=== PATIENT | male | born 1955 | race Caucasian/White ===

== ENCOUNTER 2020-02-23 18:05 | Emergency (ER) | payer BC, MEDICARE ==
[2020-02-23 19:14] VITALS: BP 167/90; PULSE 86
[2020-02-23 20:13] LABS: ANION GAP 16.3 mEq/L (7-13); CHLORIDE,CL 105 mmol/L (98-107); SODIUM,NA 143 mmol/L (136-145)
--- NOTE | 2020-02-23 20:19 | EDM.PDOC ---
ED HPI GENERAL MEDICAL PROBLEM - General Chief Complaint: Lower Extremity Injury/Pain Stated Complaint: RIGHT LEG BROKEN PER PT Time Seen by Provider: 02/23/20 19:15 Source of Information: Reports: Patient, RN, RN Notes Reviewed History Limitations: Reports: No Limitations - History of Present Illness INITIAL COMMENTS - FREE TEXT/NARRATIVE: Patient is a 64-year-old male who presents to the ER with complaint of right calf pain. Patient states approximately noon today he was standing on a trailer working on a 4 ow[employer] when he fell over backwards off the trailer. Patient sta valentín the right leg/calf got tangled in the side railing of the trailer. Patient states he has been up and around ambulating on it. Rates the pain a 10/10. He states the pain does improve somewhat when he lays down and elevates the leg. Patient states he is on Xarelto for atrial fibrillation. Patient states he did hit his head quite hard, denies being knocked out. Patient denies any numbness or tingling. Complains of 10 on 10 pain with active and passive range of motion. Right calf is much more swollen than the left calf. 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 Right Lower Leg Pain Score (Numeric/FACES): 10 - Related Data Allergies Allergy/AdvReac Type Severity Reaction Status Date / Time No Known Allergies Allergy Verified 02/23/20 19:14 Home Meds: Home Meds Chlorthalidone 25 mg PO DAILY 12/13/14 [History] Lisinopril 10 mg PO DAILY 12/13/14 [History] Multivitamin [Multi-Vitamin Daily] 1 tab PO DAILY 12/13/14 [History] Sildenafil [Viagra] 100 mg PO DAILY PRN 12/13/14 [History] atenoloL [Atenolol] 1.5 tab PO DAILY 12/13/14 [History] atorvaSTATin [Lipitor] 10 mg PO DAILY 12/13/14 [History] Rivaroxaban [Xarelto] 1 tab PO DAILY 08/13/15 [History] Past Medical History Other HEENT History: TINNITUS Cardiovascular History: Reports: Afib Respiratory History: Reports: None Other Gastrointestinal History: HX OF TUBULAR ADENOMA; LACTOSE INTOLERANCE Other Genitourinary History: NEPHROLITHIASIS Other Musculoskeletal History: DJD, rotator cuff trouble Neurological History: Reports: None Psychiatric History: Reports: None Endocrine/Metabolic History: Reports: Diabetes, Type II Hematologic History: Reports: None Immunologic History: Reports: None Oncologic (Cancer) History: Reports: None Other Dermatologic History: HERPES ZOSTER; POST PERIANAL WART EXCISION - Past Surgical History Other Cardiovascular Surgeries/Procedures: ECHO; CARDIAC CATHETERIZATION GI Surgical History: Reports: Cholecystectomy Social & Family History - Tobacco Use Tobacco Use Status *Q: Current Every Day Tobacco User Years of Tobacco use: 19 Packs/Tins Daily: 0.5 - Caffeine Use Caffeine Use: Reports: None - Recreational Drug Use Recreational Drug Use: No Review of Systems - Review of Systems Review Of Systems: Comprehensive ROS is negative, except as noted in HPI. ED EXAM, GENERAL - Physical Exam Exam: See Below Exam Limited By: No Limitations General Appearance: Alert, WD/WN, Mild Distress Eye Exam: Bilateral Eye: EOMI, Normal Inspection, PERRL (3 brisk) Ears: Normal External Exam, Hearing Grossly Normal Nose: Normal Inspection Throat/Mouth: Normal Inspection, Normal Voice, No Airway Compromise Head: Atraumatic, Normocephalic Neck: Normal Inspection, Supple, Non-Tender, Full Range of Motion Respiratory/Chest: No Respiratory Distress, No Accessory Muscle Use, Chest Non- Tender, Crackles (bases bilaterally) Cardiovascular: Normal Peripheral Pulses, Regular Rate, Rhythm, No Edema, No Gallop, No JVD, No Murmur, No Rub Peripheral Pulses: 2+: Radial (L), Radial (R), Dorsalis Pedis (L), Dorsalis Pedis (R) GI/Abdominal: Normal Bowel Sounds, Soft, Non-Tender (Male) Exam: Deferred Rectal (Males) Exam: Deferred Back Exam: Normal Inspection, Full Range of Motion, NT Extremities: No Pedal Edema, Leg Pain (right calf), Pallor, Other (right calf measures 41cm, left calf 36cm, very firm and tender) Neurological: Alert, Oriented, CN II-XII Intact, Normal Cognition, Normal Gait, Normal Reflexes, No Motor/Sensory Deficits Psychiatric: Normal Affect, Normal Mood Skin Exam: Cool (right lower leg) Lymphatic: No Adenopathy Course - Vital Signs Last Recorded V/S: Last Vital Signs Temp 98.6 F 02/23/20 19:06 Pulse 86 02/23/20 19:06 Resp 19 02/23/20 19:06 BP 167/90 H 02/23/20 19:06 Pulse Ox 98 02/23/20 19:06 - Orders/Labs/Meds Orders: Active Orders 24 hr Category Date Time Status UA W/MANOJ RFLX IF INDICATED [URIN] Stat Lab 02/23/20 19:32 Ordered Labs: Laboratory Tests 02/23/20 02/23/20 02/23/20 Range/Units 19:46 19:46 19:46 WBC 9.6 (5.0-10.0) 10^3/uL RBC 4.31 L (4.6-6.2) 10^6/uL Hgb 13.4 L (14.0-18.0) g/dL Hct 40.0 (40.0-54.0) % MCV 92.8 D (80-100) fL MCH 31.1 (27.0-34.0) pg MCHC 33.5 (33.0-35.0) g/dL Plt Count 180 (150-450) 10^3/uL Neut % (Auto) 56.6 (42.2-75.2) % Lymph % (Auto) 29.9 (20.5-50.1) % [place] % (Auto) 10.7 H (2-8) % Eos % (Auto) 2.7 (1.0-3.0) % Baso % (Auto) 0.1 (0.0-1.0) % PT 12.3 H (9.0-12.0) SEC INR 1.3 H (0.9-1.2) Sodium 143 (136-145) mmol/L Potassium 4.3 (3.5-5.1) mmol/L Chloride 105 (98-107) mmol/L Carbon Dioxide 26 (21-32) mmol/L Anion Gap 16.3 H (7-13) mEq/L BUN 22 H (7-18) mg/dL Creatinine 1.16 (0.70-1.30) mg/dL Est Cr Clr Drug Dosing 55.96 mL/min Estimated GFR (MDRD) > 60 BUN/Creatinine Ratio 19.0 (No establ ref range) Glucose 91 (74-99) mg/dL Lactic Acid (0.4-2.0) mmol/L Calcium 8.9 (8.5-10.1) mg/dL Total Bilirubin 0.3 (0.2-1.0) mg/dL AST 22 (15-37) U/L ALT 30 (16-63) U/L Alkaline Phosphatase 74 (46-116) U/L Creatine Kinase (39-308) U/L Creatine Kinase Index (0-2.4) % CK-MB (CK-2) (0.0-3.6) ng/mL Total Protein 7.0 (6.4-8.2) g/dL Albumin 4.0 (3.4-5.0) g/dL Globulin 3.0 Albumin/Globulin Ratio 1.3 02/23/20 02/23/20 Range/Units 19:46 20:39 WBC (5.0-10.0) 10^3/uL RBC (4.6-6.2) 10^6/uL Hgb (14.0-18.0) g/dL Hct (40.0-54.0) % MCV (80-100) fL MCH (27.0-34.0) pg MCHC (33.0-35.0) g/dL Plt Count (150-450) 10^3/uL Neut % (Auto) (42.2-75.2) % Lymph % (Auto) (20.5-50.1) % [place] % (Auto) (2-8) % Eos % (Auto) (1.0-3.0) % Baso % (Auto) (0.0-1.0) % PT (9.0-12.0) SEC INR (0.9-1.2) Sodium (136-145) mmol/L Potassium (3.5-5.1) mmol/L Chloride (98-107) mmol/L Carbon Dioxide (21-32) mmol/L Anion Gap (7-13) mEq/L BUN (7-18) mg/dL Creatinine (0.70-1.30) mg/dL Est Cr Clr Drug Dosing mL/min Estimated GFR (MDRD) BUN/Creatinine Ratio (No establ ref range) Glucose (74-99) mg/dL Lactic Acid 0.6 (0.4-2.0) mmol/L Calcium (8.5-10.1) mg/dL Total Bilirubin (0.2-1.0) mg/dL AST (15-37) U/L ALT (16-63) U/L Alkaline Phosphatase (46-116) U/L Creatine Kinase 235 (39-308) U/L Creatine Kinase Index 1.7 (0-2.4) % CK-MB (CK-2) 3.9 H (0.0-3.6) ng/mL Total Protein (6.4-8.2) g/dL Albumin (3.4-5.0) g/dL Globulin Albumin/Globulin Ratio - Radiology Interpretation Free Text/Narrative:: Tib/fib xray: PROCEDURE INFORMATION: Exam: XR Right Tibia and Fibula Exam date and time: 02/23/2020 8:00 PM Age: 64 years old Clinical indication: Other: Fall--mid calf pain; Additional info: Injury lower leg, hit head TECHNIQUE: Imaging protocol: XR Right tibia and fibula. Views: 2 views. COMPARISON: No relevant prior studies available. FINDINGS: Bones/joints: Small well corticated density at the tip of the lateral malleolus does not appear to reflect an acute abnormality. The distal medial malleolus is intact. There is no evidence of acute fracture. There is no subluxation or dislocation. Soft tissues: There is no soft tissue abnormality seen. IMPRESSION: No acute findings. Thank you for allowing us to participate in the care of your patient. Dictated and Authenticated by: Deejay Perez MD 02/23/2020 8:45 PM Central Time ([place] & [place]) Head CT wo contrast: PROCEDURE INFORMATION: Exam: CT Head Without Contrast Exam date and time: 02/23/2020 7:59 PM Age: 64 years old Clinical indication: Fall; Additional info: Injury lower leg, hit head TECHNIQUE: Imaging protocol: Computed tomography of the head without contrast. Radiation optimization: All CT scans at this facility use at least one of these dose optimization techniques: automated exposure control; mA and/or kV adjustment per patient size (includes targeted exams where dose is matched to clinical indication); or iterative reconstruction. COMPARISON: CT Head wo Cont 02/07/2017 10:36 AM FINDINGS: Brain: Age-related involutional changes and chronic microvascular ischemic disease. No evidence for acute transcortical infarct. No mass effect or midline shift. No extra-axial collection. No acute intracranial hemorrhage. Basal cisterns are patent. Cerebral ventricles: No ventriculomegaly. Bones/joints: Unremarkable. No acute fracture. Paranasal sinuses: Visualized sinuses are unremarkable. No fluid levels. Mastoid air cells: Visualized mastoid air cells are well aerated. Soft tissues: Unremarkable. IMPRESSION: No evidence for acute transcortical infarct, acute intracranial hemorrhage, or mass effect. Thank you for allowing us to participate in the care of your patient. Dictated and Authenticated by: Hardik Forde MD 02/23/2020 8:44 PM Central Time ([place] & [place]) See rad report - Re-Assessments/Exams Free Text/Narrative Re-Assessment/Exam: 02/23/20 21:54 Discussed patient case with Dr. Barry who states the patient can be sent to ER at [facility] for second opinion evaluation for compartment syndrome. Discussed patient case with Dr. Landry in the ER at [facility] who agreed to accept the patient for POV transfer to [facility]. Patient will drive private vehicle to [facility] in [place]. Departure - Departure Time of Disposition: 21:50 Disposition: DC/Tfer to Acute Hospital 02 Condition: Fair Clinical Impression: Right calf pain, Anticoagulant long-term use Fall Qualifiers: Encounter type: initial encounter Qualified Code(s): W19.XXXA - Unspecified fall, initial encounter - Discharge Information *PRESCRIPTION DRUG MONITORING PROGRAM REVIEWED*: No *COPY OF PRESCRIPTION DRUG MONITORING REPORT IN PATIENT ALBERTO: No Forms: ED Department Discharge, Interfacility Transfer [facility] Sepsis Event Note (ED) - Evaluation Sepsis Screening Result: No Definite Risk - Focused Exam Vital Signs: Vital Signs Temp Pulse Resp BP Pulse Ox 02/23/20 19:06 98.6 F 86 19 167/90 H 98 - My Orders Last 24 Hours: My Active Orders 02/23/20 19:32 UA W/MANOJ RFLX IF INDICATED [URIN] Stat - Assessment/Plan Last 24 Hours: My Active Orders 02/23/20 19:32 UA W/MANOJ RFLX IF INDICATED [URIN] Stat
--- NOTE | 2020-02-23 20:44 | CT ---
PROCEDURE INFORMATION: Exam: CT Head Without Contrast Exam date and time: 02/23/2020 7:59 PM Age: 64 years old Clinical indication: Fall; Additional info: Injury lower leg, hit head TECHNIQUE: Imaging protocol: Computed tomography of the head without contrast. Radiation optimization: All CT scans at this facility use at least one of these dose optimization techniques: automated exposure control; mA and/or kV adjustment per patient size (includes targeted exams where dose is matched to clinical indication); or iterative reconstruction. COMPARISON: CT Head wo Cont 02/07/2017 10:36 AM FINDINGS: Brain: Age-related involutional changes and chronic microvascular ischemic disease. No evidence for acute transcortical infarct. No mass effect or midline shift. No extra-axial collection. No acute intracranial hemorrhage. Basal cisterns are patent. Cerebral ventricles: No ventriculomegaly. Bones/joints: Unremarkable. No acute fracture. Paranasal sinuses: Visualized sinuses are unremarkable. No fluid levels. Mastoid air cells: Visualized mastoid air cells are well aerated. Soft tissues: Unremarkable. IMPRESSION: No evidence for acute transcortical infarct, acute intracranial hemorrhage, or mass effect.
--- NOTE | 2020-02-23 20:45 | CR ---
PROCEDURE INFORMATION: Exam: XR Right Tibia and Fibula Exam date and time: 02/23/2020 8:00 PM Age: 64 years old Clinical indication: Other: Fall--mid calf pain; Additional info: Injury lower leg, hit head TECHNIQUE: Imaging protocol: XR Right tibia and fibula. Views: 2 views. COMPARISON: No relevant prior studies available. FINDINGS: Bones/joints: Small well corticated density at the tip of the lateral malleolus does not appear to reflect an acute abnormality. The distal medial malleolus is intact. There is no evidence of acute fracture. There is no subluxation or dislocation. Soft tissues: There is no soft tissue abnormality seen. IMPRESSION: No acute findings.
== END 2020-02-23 22:04 ==
LOC: DL.ED 18:05
DX: M79.661 Pain in right lower leg (principal); I48.91 Unspecified atrial fibrillation; E11.9 Type 2 diabetes mellitus without complications; F17.210 Nicotine dependence, cigarettes, uncomplicated; Z79.01 Long term (current) use of anticoagulants; Z79.899 Other long term (current) drug therapy; W17.89XA Other fall from one level to another, initial encounter
CPT/HCPCS: 36415; 70450; 73590-RT; 80053; 82550; 82553; 83605; 85025; 85610; 99284; 99285-25

== ENCOUNTER 2020-06-01 20:34 | Emergency (ER) | payer MEDICARE ==
[2020-06-01] MEDS ORDERED: Aspirin 81 MG Tab.Chew PO ONE (20:47)
[2020-06-01] MEDS ORDERED: Nitroglycerin 0.4 MG Tab.SL SL ONE (20:50)
[2020-06-01 20:59] VITALS: BP 151/105; PULSE 83
[2020-06-01] MEDS ORDERED: Heparin Sodium 5,000 Units/ML Vial IVPUSH ONE (21:09)
[2020-06-01 21:11] LABS: PTT,PARTIAL THROMBOPLSTIN TIME 25.4 SEC (22.0-34.0)
--- NOTE | 2020-06-01 21:11 | EDM.PDOC ---
ED HPI GENERAL MEDICAL PROBLEM - General Chief Complaint: Chest Pain Stated Complaint: CHEST PAIN, HEADACHE Time Seen by Provider: 06/01/20 20:55 Source of Information: Reports: Patient, Old Records, RN, RN Notes Reviewed History Limitations: Reports: No Limitations - History of Present Illness INITIAL COMMENTS - FREE TEXT/NARRATIVE: Patient presents to the ED via personal vehicle with complaints of chest pain and headache. The patient reports these symptoms began approximately one hour prior to presentation to this facility while he was "..cleaning up my [place] [address]." He attest to a history of AFib for which he takes Warfarin daily. He states he has had several stress tests but denies any cardiac procedures/surgeries. He currently characterizes the pain in his chest as sharp in nature and notes it is localized to his midsternal chest; he rates it at a 6/10. He has not taken any medications for this pain; he has not taken any aspirin or Nitro. He has not taken any Viagra in over one month. The patient attests to smoking a 1/2 pack of cigarettes daily. He states he drinks alcohol socially; he denies recreational drug use. - Related Data Allergies Allergy/AdvReac Type Severity Reaction Status Date / Time No Known Allergies Allergy Verified 06/01/20 20:49 Home Meds: Home Meds Multivitamin [Multi-Vitamin Daily] 1 tab PO DAILY 12/13/14 [History] Sildenafil [Viagra] 100 mg PO DAILY PRN 12/13/14 [History] atorvaSTATin [Lipitor] 20 mg PO DAILY 12/13/14 [History] Doxycycline [Vibramycin] 50 mg PO BID 06/01/20 [History] Metoprolol Tartrate 37.5 mg PO DAILY 06/01/20 [History] Tamsulosin [Tamsulosin 24 Hr] 0.4 mg PO DAILY 06/01/20 [History] Warfarin Sodium [Jantoven] 5 mg PO DAILY 06/01/20 [History] Past Medical History Other HEENT History: TINNITUS Cardiovascular History: Reports: Afib, High Cholesterol, Hypertension Respiratory History: Reports: None Other Gastrointestinal History: HX OF TUBULAR ADENOMA; LACTOSE INTOLERANCE Other Genitourinary History: NEPHROLITHIASIS Musculoskeletal History: Reports: Fracture Other Musculoskeletal History: DJD, rotator cuff trouble Neurological History: Reports: None Psychiatric History: Reports: None Endocrine/Metabolic History: Reports: Diabetes, Type II Hematologic History: Reports: None Immunologic History: Reports: None Oncologic (Cancer) History: Reports: None Other Dermatologic History: HERPES ZOSTER; POST PERIANAL WART EXCISION - Past Surgical History Other Cardiovascular Surgeries/Procedures: ECHO; CARDIAC CATHETERIZATION GI Surgical History: Reports: Cholecystectomy Social & Family History - Tobacco Use Tobacco Use Status *Q: Current Every Day Tobacco User Years of Tobacco use: 30 Packs/Tins Daily: 0.5 - Caffeine Use Caffeine Use: Reports: None - Recreational Drug Use Recreational Drug Use: No ED ROS GENERAL - Review of Systems Review Of Systems: Comprehensive ROS is negative, except as noted in HPI. ED EXAM, GENERAL - Physical Exam Exam: See Below Exam Limited By: No Limitations General Appearance: Alert, No Apparent Distress Eye Exam: Bilateral Eye: EOMI, Normal Inspection, PERRL (3mm) Nose: Normal Inspection, Normal Mucosa, No Blood Throat/Mouth: Normal Inspection, Normal Oropharynx. No: Normal Voice, No Airway Compromise Head: Atraumatic, Normocephalic Neck: Normal Inspection, Supple, Non-Tender, Full Range of Motion. No: Lymphadenopathy (L), Lymphadenopathy (R) Respiratory/Chest: No Respiratory Distress, No Accessory Muscle Use, Wheezing (Inspiratory wheezes to all lung sosa). No: Chest Non-Tender (Tenderness to midsternal chest), Crackles, Rales, Rhonchi, Stridor Cardiovascular: No Edema, No Gallop, No JVD, No Murmur, No Rub, Irregularly Irregular Peripheral Pulses: 2+: Radial (L), Radial (R) GI/Abdominal: Normal Bowel Sounds, Soft, Non-Tender, No Distention, No Mass, Pelvis Stable (Male) Exam: Deferred Rectal (Males) Exam: Deferred Back Exam: Normal Inspection, Full Range of Motion Extremities: Normal Inspection, Normal Range of Motion, Non-Tender, No Pedal Edema, Normal Capillary Refill Neurological: Alert, Oriented, CN II-XII Intact, Normal Cognition, Normal Gait, No Motor/Sensory Deficits Psychiatric: Normal Affect, Normal Mood Skin Exam: Warm, Dry, Intact, Normal Color, No Rash. No: Ecchymosis, Erythema, Jaundice, Mottled, Pallor, Petechiae #1 Interpretation EKG Date: 06/01/20 Time: 20:43 Rhythm: A-Fib Rate (Beats/Min): 76 [place]: Normal P-Wave: Absent QRS: Normal ST-T: Elevated (II, III, aVF) QT: Normal Comparison: NA - No Prior EKG EKG Interpretation Comments: AFib; ST elevation in II, III, and aVF; ST depression V1 and V2; PVCs noted; Indication for myocardial ischemia #2 Interpretation EKG Date: 06/01/20 Time: 21:13 Rhythm: A-Fib Rate (Beats/Min): 79 [place]: Normal P-Wave: Absent QRS: Normal ST-T: Elevated (Mild elevation in II and III; improved compared to previous EKG) QT: Normal Comparison: Change From Previous EKG (Improvement in ST elevation in II and III, no aVF ST elevation.) EKG Interpretation Comments: AFib; Mild ST elevation in II and III - improvement when compared to previous EKG; PVCs still appreciated; Continued evidence for myocardial ischemia Course - Vital Signs Last Recorded V/S: Last Vital Signs Temp 98 F 06/01/20 20:49 Pulse 83 06/01/20 20:58 Resp 16 06/01/20 20:58 BP 151/105 H 06/01/20 20:58 Pulse Ox 97 06/01/20 20:58 - Orders/Labs/Meds Orders: Active Orders 24 hr Category Date Time Status EKG Documentation Completion [RC] STAT Care 06/01/20 20:43 Ordered Rae [CORONAVIRUS COVID-19 HUAN] [MOLEC] Stat Lab 06/01/20 21:34 Ordered DRUG SCREEN URINE BIORAD [URCHEM] Urgent Lab 06/01/20 20:43 Ordered UA RFX MANOJ AND CULT IF INDIC [URIN] Stat Lab 06/01/20 20:43 Ordered Heparin Sodium/0.45% NaCl [Heparin 25,000 Units in 1/2 Med 06/01/20 21:15 Ordered NS 500 ML] 25,000 units in 500 ml IV TITRATE Medication Orders Heparin Sodium/Sodium Chloride (Heparin 25,000 Units In 1/2 Ns 500 Ml) 25,000 units in 500 mls @ 19.094 mls/hr IV TITRATE IJEOMA; Protocol Last Admin: 06/01/20 21:24 Dose: 12 units/kg/hr, 19.094 mls/hr Documented by: MIR Cosigned by: [id number] Labs: Laboratory Tests 06/01/20 06/01/20 06/01/20 Range/Units 20:49 20:49 20:49 WBC 8.4 (5.0-10.0) 10^3/uL RBC 4.81 (4.6-6.2) 10^6/uL Hgb 14.3 (14.0-18.0) g/dL Hct 43.7 (40.0-54.0) % MCV 90.9 (80-100) fL MCH 29.7 (27.0-34.0) pg MCHC 32.7 L (33.0-35.0) g/dL Plt Count 188 (150-450) 10^3/uL Neut % (Auto) 40.9 L (42.2-75.2) % Lymph % (Auto) 43.2 (20.5-50.1) % [place] % (Auto) 9.6 H (2-8) % Eos % (Auto) 6.2 H (1.0-3.0) % Baso % (Auto) 0.1 (0.0-1.0) % PT 13.0 H (9.0-12.0) SEC INR 1.3 H (0.9-1.2) APTT 25.4 (22.0-34.0) SEC Sodium 142 (136-145) mmol/L Potassium 3.8 (3.5-5.1) mmol/L Chloride 104 (98-107) mmol/L Carbon Dioxide 29 (21-32) mmol/L Anion Gap 12.8 (7-13) mEq/L BUN 22 H (7-18) mg/dL Creatinine 0.99 (0.70-1.30) mg/dL Est Cr Clr Drug Dosing 64.71 mL/min Estimated GFR (MDRD) > 60 BUN/Creatinine Ratio 22.2 (No establ ref range) Glucose 122 H (70-99) mg/dL Lactic Acid (0.4-2.0) mmol/L Calcium 8.7 (8.5-10.1) mg/dL Magnesium 2.1 (1.8-2.4) mg/dL Total Bilirubin 0.2 (0.2-1.0) mg/dL AST 20 (15-37) U/L ALT 33 (16-63) U/L Alkaline Phosphatase 74 (46-116) U/L Troponin I 0.471 H* (0.000-0.056) ng/mL C-Reactive Protein < 0.2 (0.0-0.9) mg/dL B-Natriuretic Peptide 195 H (0-100) pg/ml Total Protein 6.9 (6.4-8.2) g/dL Albumin 3.5 (3.4-5.0) g/dL Globulin 3.4 Albumin/Globulin Ratio 1.0 Ethyl Alcohol < 3 (0) mg/dL 06/01/20 Range/Units 20:49 WBC (5.0-10.0) 10^3/uL RBC (4.6-6.2) 10^6/uL Hgb (14.0-18.0) g/dL Hct (40.0-54.0) % MCV (80-100) fL MCH (27.0-34.0) pg MCHC (33.0-35.0) g/dL Plt Count (150-450) 10^3/uL Neut % (Auto) (42.2-75.2) % Lymph % (Auto) (20.5-50.1) % [place] % (Auto) (2-8) % Eos % (Auto) (1.0-3.0) % Baso % (Auto) (0.0-1.0) % PT (9.0-12.0) SEC INR (0.9-1.2) APTT (22.0-34.0) SEC Sodium (136-145) mmol/L Potassium (3.5-5.1) mmol/L Chloride (98-107) mmol/L Carbon Dioxide (21-32) mmol/L Anion Gap (7-13) mEq/L BUN (7-18) mg/dL Creatinine (0.70-1.30) mg/dL Est Cr Clr Drug Dosing mL/min Estimated GFR (MDRD) BUN/Creatinine Ratio (No establ ref range) Glucose (70-99) mg/dL Lactic Acid 0.8 (0.4-2.0) mmol/L Calcium (8.5-10.1) mg/dL Magnesium (1.8-2.4) mg/dL Total Bilirubin (0.2-1.0) mg/dL AST (15-37) U/L ALT (16-63) U/L Alkaline Phosphatase (46-116) U/L Troponin I (0.000-0.056) ng/mL C-Reactive Protein (0.0-0.9) mg/dL B-Natriuretic Peptide (0-100) pg/ml Total Protein (6.4-8.2) g/dL Albumin (3.4-5.0) g/dL Globulin Albumin/Globulin Ratio Ethyl Alcohol (0) mg/dL Meds: Medications Generic Name Dose Route Start Last Admin Trade Name Freq PRN Reason Stop Dose Admin Heparin Sodium/Sodium Chloride 25,000 units in 500 mls @ 19.094 mls/hr 06/01/20 21:15 06/01/20 21:24 Heparin 25,000 Units In 1/2 Ns 500 Ml IV 12 units/kg/hr TITRATE IJEOMA 19.094 mls/hr Administration Protocol 12 UNITS/KG/HR Discontinued Medications Generic Name Dose Route Start Last Admin Trade Name Freq PRN Reason Stop Dose Admin Aspirin 324 mg 06/01/20 20:47 06/01/20 20:51 Aspirin 81 Mg Tab.Chew PO 06/01/20 20:48 324 mg ONETIME ONE Administration Clopidogrel Bisulfate 600 mg 06/01/20 21:16 06/01/20 21:25 Clopidogrel 75 Mg Tab PO 06/01/20 21:17 600 mg ONETIME ONE Administration Heparin Sodium (Porcine) 4,000 units 06/01/20 21:09 06/01/20 21:24 Heparin Sodium 5,000 Units/Ml Vial IVPUSH 06/01/20 21:10 4,000 units .BOLUS ONE Administration Nitroglycerin 0.4 mg 06/01/20 20:50 06/01/20 20:53 Nitroglycerin 0.4 Mg Tab.Sl SL 06/01/20 20:51 0.4 mg ONETIME ONE Administration - Radiology Interpretation Free Text/Narrative:: [facility] Final Radiology Report Call: [phone] assistance Online chat: [email or web address] Name: LULU LEDEZMA Age: 65Years M Date: 06/01/2020 SSN: -- : 1955 Study: CR CHEST 1V FRONTAL Requesting Physician: Malissa Delgado Images: 1 Addl Studies: Provided Clinical History: Chest pain Contrast: Contrast Medium: Contrast Amount: Contrast Method: CONFIDENTIALITY STATEMENT This report is intended only for use by the referring physician, and only in accordance with law. If you received this in error, call [phone]. Page 1 of 1 PROCEDURE INFORMATION: Exam: XR Chest Exam date and time: 06/01/2020 8:56 PM Age: 65 years old Clinical indication: Other: Chest pain TECHNIQUE: Imaging protocol: XR of the chest. Views: 1 view. COMPARISON: No relevant prior studies available. FINDINGS: Lungs: No suspicious pulmonary nodules or areas of lung consolidation. Pleural spaces: Unremarkable. No pleural effusion. No pneumothorax. Heart/Mediastinum: Unremarkable. No cardiomegaly. Bones/joints: Age appropriate. IMPRESSION: No active disease of the chest. Thank you for allowing us to participate in the care of your patient. Dictated and Authenticated by: Miles Kim MD 06/01/2020 9:19 PM Central Time ([place] & [place]) - Re-Assessments/Exams Free Text/Narrative Re-Assessment/Exam: 06/01/20 EKG remarkable for AFib, ST elevation in II, III, and aVF. Patient states pain in chest is 6/10; patient given chewable ASA 325mg and Nitro 0.4mg SL. Blood pressure elevated in 180s systolic. Will start Heparin gtt for STEMI while labs pending. Patient verbalizes improvement in pain to chest following Nitro; now 2/10 Initial EKG sent to [facility] in [place]; case discussed with Dr. Kwong, hand kiss setter. Dr. Kwong requests repeat EKG, Plavix 600mg PO, and to arrange for patient transport as he kindly agreed to accept patient for transfer for STEMI. Troponin 0.461. Repeat EKG and Troponin discussed with Dr. Kwong who agreed to continue with previous plan of care. Discussed findings of examination, EKG, lab work, and imaging with patient. Reviewed likelihood of STEMI with patient and notified him he would need to be sent to [facility] emergently d/t findings. Patient verbalized understanding and agreement with the plan of care. Departure - Departure Time of Disposition: 21:45 Disposition: DC/Tfer to Acute Hospital 02 Reason for Transfer *Q: Primary PCI Indicated Condition: Fair Clinical Impression: STEMI (ST elevation myocardial infarction) Qualifiers: Involved coronary artery: unspecified coronary artery Qualified Code(s): I21.3 - ST elevation (STEMI) myocardial infarction of unspecified site Hypertension Qualifiers: Hypertension type: essential hypertension Qualified Code(s): I10 - Essential (primary) hypertension Chest pain Qualifiers: Chest pain type: chest pain due to myocardial ischemia Ischemic chest pain type: other angina pectoris type Qualified Code(s): I20.8 - Other forms of angina pectoris Headache Qualifiers: Headache type: unspecified Headache chronicity pattern: acute headache Intractability: not intractable Qualified Code(s): R51.9 - Headache, unspecified Forms: ED Department Discharge, Interfacility Transfer [facility] Sepsis Event Note (ED) - Evaluation Sepsis Screening Result: No Definite Risk - Focused Exam Vital Signs: Vital Signs Temp Pulse Resp BP BP Pulse Ox 06/01/20 20:58 83 16 151/105 H 97 06/01/20 20:53 193/105 H 06/01/20 20:49 98 F 77 20 193/105 H 98 - My Orders Last 24 Hours: My Active Orders 06/01/20 20:43 EKG Documentation Completion [RC] STAT DRUG SCREEN URINE BIORAD [URCHEM] Urgent UA RFX MANOJ AND CULT IF INDIC [URIN] Stat 06/01/20 21:15 Heparin Sodium/0.45% NaCl [Heparin 25,000 Units in 1/2 NS 500 ML] 25,000 units in 500 ml IV TITRATE 06/01/20 21:34 Rae [CORONAVIRUS COVID-19 HUAN] [MOLEC] Stat - Assessment/Plan Last 24 Hours: My Active Orders 06/01/20 20:43 EKG Documentation Completion [RC] STAT DRUG SCREEN URINE BIORAD [URCHEM] Urgent UA RFX MANOJ AND CULT IF INDIC [URIN] Stat 06/01/20 21:15 Heparin Sodium/0.45% NaCl [Heparin 25,000 Units in 1/2 NS 500 ML] 25,000 units in 500 ml IV TITRATE 06/01/20 21:34 Rae [CORONAVIRUS COVID-19 HUAN] [MOLEC] Stat
[2020-06-01] MEDS ORDERED: Heparin Sodium/0.45% NaCl 25,000 UNITS/500 ML BAG IV SCH (21:15)
[2020-06-01 21:16] LABS: ANION GAP 12.8 mEq/L (7-13); CHLORIDE,CL 104 mmol/L (98-107); SODIUM,NA 142 mmol/L (136-145)
[2020-06-01] MEDS ORDERED: Clopidogrel 75 MG Tab PO ONE (21:16)
--- NOTE | 2020-06-01 21:20 | CR ---
PROCEDURE INFORMATION: Exam: XR Chest Exam date and time: 06/01/2020 8:56 PM Age: 65 years old Clinical indication: Other: Chest pain TECHNIQUE: Imaging protocol: XR of the chest. Views: 1 view. COMPARISON: No relevant prior studies available. FINDINGS: Lungs: No suspicious pulmonary nodules or areas of lung consolidation. Pleural spaces: Unremarkable. No pleural effusion. No pneumothorax. Heart/Mediastinum: Unremarkable. No cardiomegaly. Bones/joints: Age appropriate. IMPRESSION: No active disease of the chest.
== END 2020-06-01 21:45 ==
LOC: DL.ED 20:34
DX: I20.8 Other forms of angina pectoris (principal); I21.3 ST elevation (STEMI) myocardial infarction of unspecified site; I10 Essential (primary) hypertension; F17.210 Nicotine dependence, cigarettes, uncomplicated; I48.91 Unspecified atrial fibrillation; E78.00 Pure hypercholesterolemia, unspecified; E11.9 Type 2 diabetes mellitus without complications; Z79.01 Long term (current) use of anticoagulants; Z79.899 Other long term (current) drug therapy; Z20.822 Contact with and (suspected) exposure to COVID-19
CPT/HCPCS: 36415; 71045; 80053; 80307; 83605; 83735; 83880; 84484; 85025; 85610; 85730; 86140; 93005; 93010; 96365; 99285; A9270; J1644; U0002

== ENCOUNTER 2020-08-30 11:17 | Emergency (ER) | payer MEDICARE ==
[2020-08-30 13:06] VITALS: BP 118/77; PULSE 86
--- NOTE | 2020-08-30 13:51 | EDM.PDOC ---
ED HPI GENERAL MEDICAL PROBLEM - General Chief Complaint: General Stated Complaint: [id number] FELL AND THINKS CRACKED RIBS Time Seen by Provider: 08/30/20 13:49 Source of Information: Reports: Patient, RN, RN Notes Reviewed History Limitations: Reports: No Limitations - History of Present Illness INITIAL COMMENTS - FREE TEXT/NARRATIVE: Matt is a 65 y/o male who presents to the ED via personal vehicle with complaints of left, lateral chest pain. The patient reports he fell from a six- foot ladder about thirty minutes prior to his arrival to this facility. The patient reports he fell onto his left chest; he denies striking his head or loss of consciousness, but he is on blood thinners. He does attest to difficulty with deep breaths due to pain. The patient denies history of injury to his left chest, but reports right rib fractures several years ago. He denies headache, vision changes, cervical point tenderness, palpitations, abdominal pain, nausea, or vomiting. He has not taken any medications for his pain. - Related Data Allergies Allergy/AdvReac Type Severity Reaction Status Date / Time No Known Allergies Allergy Verified 08/30/20 13:00 Home Meds: Home Meds Multivitamin [Multi-Vitamin Daily] 1 tab PO DAILY 12/13/14 [History] atorvaSTATin [Lipitor] 20 mg PO DAILY 12/13/14 [History] Doxycycline [Vibramycin] 50 mg PO BID 06/01/20 [History] Warfarin Sodium [Jantoven] 5 mg PO DAILY 06/01/20 [History] Warfarin Sodium 7.5 mg PO DAILY 08/30/20 [History] Past Medical History Other HEENT History: TINNITUS Cardiovascular History: Reports: Afib, High Cholesterol, Hypertension Respiratory History: Reports: None Other Gastrointestinal History: HX OF TUBULAR ADENOMA; LACTOSE INTOLERANCE Other Genitourinary History: NEPHROLITHIASIS Musculoskeletal History: Reports: Fracture Other Musculoskeletal History: DJD, rotator cuff trouble Neurological History: Reports: None Psychiatric History: Reports: None Endocrine/Metabolic History: Reports: Diabetes, Type II Hematologic History: Reports: None Immunologic History: Reports: None Oncologic (Cancer) History: Reports: None Other Dermatologic History: HERPES ZOSTER; POST PERIANAL WART EXCISION - Past Surgical History Cardiovascular Surgical History: Reports: Other (See Below) Other Cardiovascular Surgeries/Procedures: ECHO; CARDIAC CATHETERIZATION GI Surgical History: Reports: Cholecystectomy Social & Family History - Tobacco Use Tobacco Use Status *Q: Current Every Day Tobacco User Years of Tobacco use: 16 Packs/Tins Daily: 0.5 Used Tobacco, but Quit: No - Caffeine Use Caffeine Use: Reports: Soda - Recreational Drug Use Recreational Drug Use: No ED ROS GENERAL - Review of Systems Review Of Systems: Comprehensive ROS is negative, except as noted in HPI. ED EXAM, GENERAL - Physical Exam Exam: See Below Exam Limited By: No Limitations General Appearance: No Apparent Distress Ears: Normal External Exam, Hearing Grossly Normal Nose: Normal Inspection, Normal Mucosa, No Blood Throat/Mouth: Normal Inspection, Normal Oropharynx, Normal Voice, No Airway Compromise Head: Atraumatic, Normocephalic Neck: Normal Inspection, Supple, Non-Tender, Full Range of Motion Respiratory/Chest: Decreased Breath Sounds, Splinting. No: Chest Non-Tender (Tender to left, lateral chest), Crackles, Rales, Rhonchi, Wheezing, Stridor, Re tractions Cardiovascular: Normal Peripheral Pulses, No Edema, No Gallop, No JVD, No Murmur, No Rub, Irregularly Irregular Peripheral Pulses: 2+: Radial (L), Radial (R) GI/Abdominal: Normal Bowel Sounds, Soft, No Distention, No Abnormal Bruit, No Mass, Pelvis Stable (Male) Exam: Deferred Rectal (Males) Exam: Deferred Back Exam: Normal Inspection, Full Range of Motion. No: Muscle Spasm, Paraspinal Tenderness, Vertebral Tenderness Extremities: Normal Inspection, Normal Range of Motion, Non-Tender, No Pedal Edema, Normal Capillary Refill Neurological: Alert, Oriented, CN II-XII Intact, Normal Cognition, Normal Gait, No Motor/Sensory Deficits Psychiatric: Normal Affect, Normal Mood Skin Exam: Warm, Dry, Intact, Normal Color, No Rash. No: Cyanosis, Ecchymosis, Erythema, Jaundice, Mottled, Pallor, Petechiae #1 Interpretation EKG Date: 08/30/20 Time: 13:29 Rhythm: A-Fib Rate (Beats/Min): 86 [place]: Normal P-Wave: Absent QRS: Normal ST-T: Normal QT: Normal Comparison: Change From Previous EKG (No bigeminy on EKG today) EKG Interpretation Comments: AFib; No evidence of acute myocardial ischemia Course - Vital Signs Last Recorded V/S: Last Vital Signs Temp 98.8 F 07/10/21 13:05 Pulse 86 08/30/20 13:05 Resp 20 08/30/20 13:05 BP 118/77 08/30/20 13:05 Pulse Ox 99 08/30/20 13:05 - Orders/Labs/Meds Labs: Laboratory Tests 08/30/20 08/30/20 08/30/20 Range/Units 13:24 13:24 13:24 WBC 10.0 (5.0-10.0) 10^3/uL RBC 4.82 (4.6-6.2) 10^6/uL Hgb 14.5 (14.0-18.0) g/dL Hct 44.3 (40.0-54.0) % MCV 91.9 (80-100) fL MCH 30.1 (27.0-34.0) pg MCHC 32.7 L (33.0-35.0) g/dL Plt Count 234 (150-450) 10^3/uL Neut % (Auto) 70.7 (42.2-75.2) % Lymph % (Auto) 18.3 L (20.5-50.1) % [place] % (Auto) 8.8 H (2-8) % Eos % (Auto) 2.0 (1.0-3.0) % Baso % (Auto) 0.2 (0.0-1.0) % PT 17.2 H D (9.0-12.0) SEC INR 1.7 H (0.9-1.2) APTT 27.0 (22.0-34.0) SEC Troponin I High Sens 7 (<=76) pg/mL Meds: Medications Discontinued Medications Generic Name Dose Route Start Last Admin Trade Name Freq PRN Reason Stop Dose Admin Ondansetron HCl 4 mg 08/30/20 14:04 08/30/20 14:26 Ondansetron 4 Mg Tab.Dis PO 08/30/20 14:05 4 mg ONETIME ONE Administration Oxycodone/Acetaminophen 1 tab 08/30/20 14:04 08/30/20 14:26 Acetaminophen/Oxycodone 325-5 Mg Tab PO 08/30/20 14:05 1 tab ONETIME ONE Administration - Radiology Interpretation Free Text/Narrative:: [facility] [place] [facility] Final Radiology Report 24/7/365 Call: [phone] assistance Online chat: [email or web address] Name: MATT LEDEZMA Age: 65Years M Date: 08/30/2020 SSN: -- : 1955 Study: CR RIBS 2V W CHEST LT Requesting Physician: Malissa Delgado Images: 3 Addl Studies: Provided Clinical History: fall, pain to anterior left rib that wraps around towards the back, lower left rib pain Contrast: Contrast Medium: Contrast Amount: Contrast Method: CONFIDENTIALITY STATEMENT This report is intended only for use by the referring physician, and only in accordance with law. If you received this in error, call [phone]. Page 1 of 1 PROCEDURE INFORMATION: Exam: XR Left Ribs with PA Chest Exam date and time: 08/30/2020 1:06 PM Age: 65 years old Clinical indication: Injury or trauma; Fall; Rib area, left side; Swelling; Injury date: Today; Additional info: Fall, pain to anterior left rib that wraps around towards the back, lower left rib pain TECHNIQUE: Imaging protocol: XR Left ribs with PA chest. Views: 3 views COMPARISON: CR Chest 1V Frontal 06/01/2020 8:56 PM FINDINGS: Lungs: Unremarkable. No consolidation. Pleural spaces: Unremarkable. No pleural effusion. No pneumothorax. Heart/Mediastinum: Unremarkable. No cardiomegaly. Bones/joints: Unremarkable. IMPRESSION: Normal chest and left rib series. Thank you for allowing us to participate in the care of your patient. Dictated and Authenticated by: Ifeanyi Cordoba MD 08/30/2020 2:05 PM Central Time ([place] & [place]) - Re-Assessments/Exams Free Text/Narrative Re-Assessment/Exam: 08/30/20 Percocet administered for acute chest pain. Findings of examination, lab work, and imaging reviewed with patient. Discussed supportive cares for chest wall pain. Red flag signs and symptoms which would warrant reevaluation reviewed. Patient verbalized understanding and agreement with the plan of care. Departure - Departure Time of Disposition: 14:55 Disposition: Home, Self-Care 01 Condition: Good Clinical Impression: Chronic anticoagulation, Left-sided chest wall pain Fall from ladder Qualifiers: Encounter type: initial encounter Qualified Code(s): W11.XXXA - Fall on and from ladder, initial encounter - Discharge Information *PRESCRIPTION DRUG MONITORING PROGRAM REVIEWED*: Not Applicable *COPY OF PRESCRIPTION DRUG MONITORING REPORT IN PATIENT ALBERTO: Not Applicable Forms: ED Department Discharge Additional Instructions: Rx: Tylenol with Codeine #3 1.) You may take additional Tylenol 325mg with the Tylenol#3, as pain persists. 2.) Perform breathing exercises 10x every hour, while awake. 3.) Decrease cigarette use, as able. 4.) Follow up with primary care provider, or return to the emergency department, with any increase in shortness of breath, fever, shaking chills, or pain that persists despite medication. Sepsis Event Note (ED) - Evaluation Sepsis Screening Result: No Definite Risk
[2020-08-30] MEDS ORDERED: Ondansetron 4 MG Tab.DIS PO ONE (14:04)
[2020-08-30] MEDS ORDERED: Acetaminophen/oxyCODONE 325-5 MG Tab PO ONE (14:04)
--- NOTE | 2020-08-30 14:06 | CR ---
PROCEDURE INFORMATION: Exam: XR Left Ribs with PA Chest Exam date and time: 08/30/2020 1:06 PM Age: 65 years old Clinical indication: Injury or trauma; Fall; Rib area, left side; Swelling; Injury date: Today; Additional info: Fall, pain to anterior left rib that wraps around towards the back, lower left rib pain TECHNIQUE: Imaging protocol: XR Left ribs with PA chest. Views: 3 views COMPARISON: CR Chest 1V Frontal 06/01/2020 8:56 PM FINDINGS: Lungs: Unremarkable. No consolidation. Pleural spaces: Unremarkable. No pleural effusion. No pneumothorax. Heart/Mediastinum: Unremarkable. No cardiomegaly. Bones/joints: Unremarkable. IMPRESSION: Normal chest and left rib series.
== END 2020-08-30 15:14 | disposition home or self-care (01) ==
LOC: DL.ED 11:17
DX: R07.89 Other chest pain (principal); I48.91 Unspecified atrial fibrillation; E78.00 Pure hypercholesterolemia, unspecified; I10 Essential (primary) hypertension; E11.9 Type 2 diabetes mellitus without complications; Z72.0 Tobacco use; Z79.899 Other long term (current) drug therapy; Z79.01 Long term (current) use of anticoagulants; W11.XXXA Fall on and from ladder, initial encounter
CPT/HCPCS: 36415; 71101; 84484; 85025; 85610; 85730; 93005; 94010; 99284; A9270

== ENCOUNTER 2021-05-11 15:57 | Emergency (ER) | payer MEDICARE ==
[2021-05-11 16:20] VITALS: BP 146/88; PULSE 80
[2021-05-11 17:01] LABS: PTT,PARTIAL THROMBOPLSTIN TIME 35.2 SEC (22.0-34.0)
== END 2021-05-11 17:21 | disposition home or self-care (01) ==
LOC: DL.ED 15:57
DX: S80.11XA Contusion of right lower leg, initial encounter (principal); E11.9 Type 2 diabetes mellitus without complications; I48.91 Unspecified atrial fibrillation; E78.00 Pure hypercholesterolemia, unspecified; I10 Essential (primary) hypertension; Z79.01 Long term (current) use of anticoagulants; Z79.899 Other long term (current) drug therapy
CPT/HCPCS: 36415; 85379; 85610; 85730; 99283

== ENCOUNTER 2022-03-11 09:26 | Emergency (ER) | payer MEDICARE ==
[2022-03-11] MEDS ORDERED: Aspirin 81 MG Tab.Chew PO ONE (10:16)
[2022-03-11] MEDS ORDERED: Aspirin 81 MG Tab.Chew ONE (10:25)
[2022-03-11 10:42] LABS: ANION GAP 14.7 mEq/L (7-13); CHLORIDE,CL 106 mmol/L (98-107); ESTIMATED GFR 62 mL/min (>=60); SODIUM,NA 141 mmol/L (136-145)
[2022-03-11 10:54] LABS: CORONAVIRUS COVID-19 NAA NEGATIVE (NEGATIVE); RESPIRATORY SYNCYTIAL VIR NAA NEGATIVE (NEGATIVE)
[2022-03-11 10:56] LABS: PTT,PARTIAL THROMBOPLSTIN TIME 24.1 SEC (22.0-34.0)
== END 2022-03-11 14:05 | disposition home or self-care (01) ==
LOC: MERGE 09:26 → DL.ED 09:26
DX: R07.2 Precordial pain (principal); M25.512 Pain in left shoulder; R51.9 Headache, unspecified; I48.91 Unspecified atrial fibrillation; I10 Essential (primary) hypertension; E78.00 Pure hypercholesterolemia, unspecified; E11.9 Type 2 diabetes mellitus without complications; Z79.899 Other long term (current) drug therapy; Z79.01 Long term (current) use of anticoagulants; Z20.822 Contact with and (suspected) exposure to COVID-19
CPT/HCPCS: 0241U; 36415; 71045; 80053; 82150; 83605; 83690; 83880; 84443; 84484; 85025; 85610; 85730; 86140; 93005; 99285; A9270

== ENCOUNTER 2022-04-08 06:52 | Day surgery (SDC) | payer MEDICARE ==
[~2022-04-08 06:52] MED LIST: Midazolam 1 MG/ML 2 ML SDV ONE; fentaNYL 100 MCG/2 ML SDV ONE
[2022-04-08] MEDS ORDERED: fentaNYL 100 MCG/2 ML SDV IV ONE ×3 (06:53→08:05)
[2022-04-08] MEDS ORDERED: Midazolam 1 MG/ML 2 ML SDV IV ONE ×5 (06:53→08:12)
[2022-04-08] MEDS ORDERED: Dextrose 5%-0.45% NaCl 1,000 ML IV SCH (07:00)
== END 2022-04-08 10:00 | disposition home or self-care (01) ==
LOC: DL.ENDO 06:52
PROVIDERS: ATTEND Internal Medicine Gastroenterology
DX: Z12.11 Encounter for screening for malignant neoplasm of colon (principal); K64.8 Other hemorrhoids; I10 Essential (primary) hypertension; E11.9 Type 2 diabetes mellitus without complications; E78.00 Pure hypercholesterolemia, unspecified; I48.91 Unspecified atrial fibrillation; N40.0 Benign prostatic hyperplasia without lower urinary tract symptoms; J44.9 Chronic obstructive pulmonary disease, unspecified; Z86.010 Personal history of colon polyps; Z98.890 Other specified postprocedural states
CPT/HCPCS: J2250; J3010; J7042

== ENCOUNTER 2022-05-12 12:07 | Emergency (ER) | payer MEDICARE ==
[2022-05-12] MEDS ORDERED: Lidocaine 1% 5 ML VIAL INJECT ONE (12:27)
[2022-05-12] MEDS ORDERED: Diphtheria,Pertussis(Acell),Tetanus Vaccine 0.5 ML Syringe IM ONE (12:27)
[2022-05-12] MEDS ORDERED: Bacitracin Oint 1 GM U/D Packet ONE (12:31)
[2022-05-12] MEDS ORDERED: Bacitracin Oint 1 GM U/D Packet TOP ONE ×2 (12:34→12:35)
== END 2022-05-12 12:43 | disposition home or self-care (01) ==
LOC: DL.ED 12:07
DX: S61.012A Laceration without foreign body of left thumb without damage to nail, initial encounter (principal); I48.91 Unspecified atrial fibrillation; I10 Essential (primary) hypertension; E11.9 Type 2 diabetes mellitus without complications; Z23 Encounter for immunization; Z79.01 Long term (current) use of anticoagulants; Z79.899 Other long term (current) drug therapy; Z72.0 Tobacco use; W26.8XXA Contact with other sharp object(s), not elsewhere classified, initial encounter
CPT/HCPCS: 12001; 90471; 90715; 99282; A9270; J3490

== ENCOUNTER 2023-05-10 09:15 | Emergency (ER) | payer MEDICARE, OTHER ==
[2023-05-10] MEDS: Aspirin 81 MG Tab.Chew PO ONE (09:30)
[2023-05-10] MEDS: Aspirin 81 MG Tab.Chew ONE (09:39)
[2023-05-10 10:21] LABS: BASOPHILS PERCENT AUTO 0.2 % (0.0-1.0); EOSINOPHILS PERCENT AUTO 3.5 % (1.0-3.0); HEMATOCRIT 43.7 % (40.0-54.0); HEMOGLOBIN 14.3 g/dL (14.0-18.0); LYMPHOCYTES PERCENT AUTO 18.3 % (20.5-50.1); MEAN CORPUSCULAR HEMOGLOBIN 30.2 pg (27.0-34.0); MEAN CORPUSCULAR HGB CONC 32.7 g/dL (33.0-35.0); MEAN CORPUSCULAR VOLUME 92.4 fL (80-100); MONOCYTES PERCENT AUTO 6.9 % (2-8); NEUTROPHILS PERCENT AUTO 71.1 % (42.2-75.2); PLATELET COUNT,PLT 222 10^3/uL (150-450); RED BLOOD CELL COUNT 4.73 10^6/uL (4.6-6.2); WHITE BLOOD CELL COUNT,WBC 8.7 10^3/uL (5.0-10.0)
[2023-05-10 10:28] LABS: A/G RATIO 1.1; ALBUMIN 3.7 g/dL (3.4-5.0); ANION GAP 13.7 mEq/L (7-13); BILIRUBIN TOTAL 0.5 mg/dL (0.2-1.0); BUN/CREATININE RATIO 13.7 (No establ ref range); CREATININE 1.39 mg/dL (0.70-1.30); EST CRCL DRUG DOSING (CG) 44.24 mL/min; POTASSIUM,K 4.7 mmol/L (3.5-5.1); PROTEIN TOTAL,TP 7.2 g/dL (6.4-8.2)
[2023-05-10 10:46] LABS: INR 1.4 (0.9-1.2); PROTHROMBIN TIME 14.6 SEC (9.0-12.0)
== END 2023-05-10 13:05 | disposition home or self-care (01) ==
LOC: DL.ED 09:15
DX: I20.89 Other forms of angina pectoris (principal); I48.91 Unspecified atrial fibrillation; I10 Essential (primary) hypertension; I25.2 Old myocardial infarction; E11.9 Type 2 diabetes mellitus without complications; F17.210 Nicotine dependence, cigarettes, uncomplicated; Z86.19 Personal history of other infectious and parasitic diseases; Z90.49 Acquired absence of other specified parts of digestive tract; Z79.01 Long term (current) use of anticoagulants; Z79.899 Other long term (current) drug therapy
CPT/HCPCS: 36415; 71046; 80053; 84484; 85025; 85379; 85610; 93005; 93010; 99284; 99285; A9270-GY

== ENCOUNTER 2024-08-23 05:19 | Day surgery (SDC) | payer MEDICARE, OTHER ==
[~2024-08-23 05:19] MED LIST changes: +Lactated Ringers 1,000 ML IV SCH; -Midazolam 1 MG/ML 2 ML SDV ONE; -fentaNYL 100 MCG/2 ML SDV ONE
[2024-08-23] MEDS ORDERED: Propofol 200 MG/20 ML SDV IV ONE (05:20)
[2024-08-23] MEDS ORDERED: Lactated Ringers 1,000 ML IV ONE (05:20)
[2024-08-23] MEDS ORDERED: Propofol 200 MG/20 ML SDV ONE (05:56)
[2024-08-23] MEDS: Lactated Ringers 1,000 ML IV SCH (06:03)
== END 2024-08-23 08:13 | disposition home or self-care (01) ==
LOC: DL.ENDO 05:19
PROVIDERS: ATTEND Internal Medicine Gastroenterology
DX: K31.89 Other diseases of stomach and duodenum (principal); D50.9 Iron deficiency anemia, unspecified; E11.9 Type 2 diabetes mellitus without complications; I10 Essential (primary) hypertension; E78.00 Pure hypercholesterolemia, unspecified; I48.91 Unspecified atrial fibrillation; R63.4 Abnormal weight loss; I25.10 Atherosclerotic heart disease of native coronary artery without angina pectoris
CPT/HCPCS: 43239; J7120; 00731; 88305